=== PATIENT | male | born 1995 | race Caucasian/White ===

== ENCOUNTER 2016-07-17 11:18 | Emergency (ER) | payer OTHER ==
[2016-07-17 11:39] VITALS: BP 135/51; PULSE 50; TEMP 98; BMI 21.2
[2016-07-17] MEDS ORDERED: IBUPROFEN 600 MG TABLET (FP) PO ONE (12:03)
--- NOTE | 2016-07-17 12:09 | PDOC ---
History of Present Illness - General Chief Complaint: Injury Stated Complaint: SWOLLEN LT PINKY Time Seen by Provider: 07/17/16 11:56 History Source: Patient Exam Limitations: No Limitations - History of Present Illness Initial Comments: 07/17/16 12:13 My chief complaint: Left fifth finger proximal aspect bend backwards yesterday patient pulled on it to realign by basketball History of present illness: Patient is a 21 year old male with no significant medical problems here today due to swelling of his left 5th proximal finger with slight discomfort to the left fifth PIP joint. Patient reports that yesterday he was playing basketball on his fifth left finger was hit by the basketball bending the proximal aspect backwards patient noted a deformity to his PIP joint patient pulled on his finger to realign finger. Patient is here to get x-ray due to having tenderness of the left fifth PIP joint with swelling. Patient has slight decreased range of motion of the left fifth finger at the PIP joint. She reports tenderness in the finger is currently a 5 out of 10 worse with bending. Denies any numbness of his left fifth finger. Occurred: reports: yesterday Severity: reports: mild Upper Extremity Pain Location: left: 5th finger (at the pip jt ) Method of Injury: reports: sports injury (hit in left 5th finger by a basketball proximal aspect hyperflexed pt. noticed deformity at pip pt pulled on it to realign ) Modifying Factors: improves with: other (pt. pulled on left fith finger to realign at the pip jt ) Extremity Pain Location - Extremity Pain Location Extremity Pain Locations: left: 5th finger (over pip jt ) Past History - Past Medical History Allergies/Adverse Reactions: Allergies Allergy/AdvReac Type Severity Reaction Status Date / Time No Known Allergies Allergy Verified 07/17/16 11:36 Home Medications: Ambulatory Orders Amoxicillin/Potassium Clav [Augmentin 875-125 Tablet] 1 each PO BID #20 tablet 06/03/15 - Immunization History Immunization Up to Date: Yes - Psycho/Social/Smoking Cessation Hx Anxiety: No Suicidal Ideation: No Smoking Status: Yes Smoking History: Never smoked Have you smoked in the past 12 months: No Number of Cigarettes Smoked Daily: 0 Information on smoking cessation initiated: No Hx Alcohol Use: No Drug/Substance Use Hx: No Substance Use Type: None Review of Systems - Review of Systems Able to Perform ROS?: Yes Constitutional: No: Symptoms Reported HEENTM: No: Symptoms Reported Respiratory: No: Symptoms reported Cardiac (ROS): No: Symptoms Reported ABD/GI: No: Symptoms Reported : No: Symptoms Reported Musculoskeletal: Yes: Joint Pain (left 5th pip jt ), Joint Swelling (left fifth finger proximal aspect ) Integumentary: Yes: Bruising (palmar left 5th finger ) Neurological: No: Symptoms reported *Physical Exam - Vital Signs Last Vital Signs Temp Pulse Resp BP Pulse Ox 98 F 50 L 18 135/51 98 07/17/16 11:37 07/17/16 11:37 07/17/16 11:37 07/17/16 11:37 07/17/16 11:37 - Physical Exam General Appearance: Yes: Appropriately Dressed Comments:: 07/17/16 1 07/17/16 12:10 radial pulse left 4 + Extremity: positive: Normal Capillary Refill, Normal Range of Motion (left mcp, dip jt, slightly decreased left 5th pip jt ), Tender (left 5th pip jt ), Swelling (left proximal 5th finger ) Integumentary: positive: Ecchymosis (left palmar 5th finger) Neurologic: positive: Normal Response, Respond to painful stimul (left fifth finger ). negative: Numbness, Sensory Deficit (left fifth finger) Procedures - Consent Consent obtained: From Patient - Splinting Splint Location: Left: Finger (fifth) Pre-Proc Neuro Vasc Exam: normal Pre-Made Type: metal Splint Type: Yes: Finger (left fifth ) Post-Proc Neuro Vasc Exam: normal ED Treatment Course - RADIOLOGY Radiology Studies Ordered: Category Date Time Status FINGER(S) LEFT [RAD] Stat Radiology 07/17/16 12:03 Ordered Medical Decision Making - Medical Decision Making 07/17/16 12:16 Patient is a 21 year old male with no significant medical problems here today due to swelling of his left 5th proximal finger with slight discomfort to the left fifth PIP joint. Patient reports that yesterday he was playing basketball on his fifth left finger was hit by the basketball bending the proximal aspect backwards patient noted a deformity to his PIP joint patient pulled on his finger to realign finger. Patient is here to get x-ray due to having tenderness of the left fifth PIP joint with swelling. Patient has slight decreased range of motion of the left fifth finger at the PIP joint. She reports tenderness in the finger is currently a 5 out of 10 worse with bending. Denies any numbness of his left fifth finger. 07/17/16 12:16 R/O left 5th finger fracture/dislocation PLAN: ibuprofen 600 mg po now xray left fifth finger metal splint to left fifth finger for 3-5 days may remove to do passive ROM few times a day follow up with ortho 07/17/16 12:19 07/17/16 12:28 *DC/Admit/Observation/Transfer Diagnosis at time of Disposition: Finger pain, left Finger joint swelling Qualifiers: Laterality: left Qualified Code(s): M25.442 - Effusion, left hand - Referrals Referrals: Kenneth Felder MD [Primary Care Provider] - Kenenth Segal MD [Staff Physician] - - Patient Instructions Additional Instructions: keep finger splint on left 5th finger may remove and do passive range of motion of finger Follow up with orthopedist within the next few days Take Ibuprofen as needed as directed by tree inspector for pain and swelling Return to emergency room if any numbness of your finger or worsening pain or redness You may apply ice to left fifth finger every 2 hours for 15-20 minutes each time today and tomorrow Patient voiced understanding of discharge instructions and all questions were answered
== END 2016-07-17 12:44 | disposition home or self-care (01) ==
LOC: JERFT 11:18
PROC: 2W3KX1Z Immobilization of Left Finger using Splint (ICD-10-PCS; principal; 2016-07-17)
DX: M79.645 Pain in left finger(s) (principal); M25.442 Effusion, left hand; W21.05XA Struck by basketball, initial encounter; Y93.67 Activity, basketball; Y92.310 Basketball court as the place of occurrence of the external cause; Y99.8 Other external cause status
CPT/HCPCS: 29130; 73140-TC-LT; 99281-25

== ENCOUNTER 2017-01-29 09:34 | Emergency (ER) | payer OTHER ==
[2017-01-29 09:38] VITALS: BP 127/99; PULSE 67; TEMP 98; BMI 21.9
--- NOTE | 2017-01-29 10:11 | PDOC ---
History of Present Illness - General Chief Complaint: Injury Stated Complaint: RT WRIST PAIN Time Seen by Provider: 01/29/17 09:57 History Source: Patient Exam Limitations: No Limitations - History of Present Illness Initial Comments: 01/29/17 10:06 Was skateboarding last night, and fell onto outstretched right hand, complaints of pain and swelling to distal wrist. States use ice last night 01/29/17 10:07 01/29/17 10:43 Occurred: reports: yesterday Severity: reports: mild, moderate Pain Location: reports: upper extremity (distal wrist ) Method of Injury: Yes: fall Modifying Factors: improves with: cold therapy Associated Symptoms (Fall): denies symptoms Past History - Travel Traveled outside of the country in the last 30 days: No Close contact w/someone who was outside of country & ill: No - Past Medical History Allergies/Adverse Reactions: Allergies Allergy/AdvReac Type Severity Reaction Status Date / Time No Known Allergies Allergy Verified 01/29/17 09:38 Home Medications: Ambulatory Orders NK [No Known Home Medication] 01/29/17 Other medical history: denies - Immunization History Immunization Up to Date: Yes - Suicide/Smoking/Psychosocial Hx Smoking Status: Yes Smoking History: Never smoked Have you smoked in the past 12 months: No Number of Cigarettes Smoked Daily: 0 Information on smoking cessation initiated: No Hx Alcohol Use: No Drug/Substance Use Hx: No Substance Use Type: None Trauma Specific PMHX - Complaint Specific PMHX Back Injury: No Neck Injury: No Review of Systems - Review of Systems Able to Perform ROS?: Yes Is the patient limited [place] proficient: Yes Constitutional: Yes: Symptoms Reported, See HPI. No: Chills HEENTM: No: Symptoms Reported Respiratory: No: Symptoms reported Musculoskeletal: Yes: Symptoms Reported All Other Systems: Reviewed and Negative *Physical Exam - Vital Signs Last Vital Signs Temp Pulse Resp BP Pulse Ox 98 F 67 18 127/99 100 01/29/17 09:36 01/29/17 09:36 01/29/17 09:36 01/29/17 09:36 01/29/17 09:36 - Physical Exam General Appearance: Yes: Nourished, Appropriately Dressed, Mild Distress HEENT: positive: [place], TMs Normal, Pharynx Normal Neck: positive: Supple. negative: Tender Musculoskeletal: positive: Normal Inspection, Decreased Range of Motion ( tenderness at distal aspect of radius and ulna, unable to flex and extend. Has no snuffbox tenderness, able to flex and extend all fingers with good sensation. ) Extremity: positive: Normal Capillary Refill Integumentary: positive: Normal Color, Dry, Warm Neurologic: positive: program checker II-XII NML intact, Fully Oriented, Alert, Normal Mood/ Affect, Normal Response, Motor Strength 5/5 Progress Note - Progress Note Progress Note: Right wrist sprain, splinted and have follow up with Orth O *DC/Admit/Observation/Transfer Diagnosis at time of Disposition: Right wrist sprain Qualifiers: Encounter type: initial encounter Qualified Code(s): S63.501A - Unspecified sprain of right wrist, initial encounter; S63.501A - Unspecified sprain of right wrist, initial encounter - Discharge Dispostion Disposition: HOME Condition at time of disposition: Stable Admit: No - Referrals Referrals: Kenneth Felder MD [Primary Care Provider] - Kenneth Segal MD [Staff Physician] - - Patient Instructions Additional Instructions: Rest, ice to area on and off for 15 minutes 4-6 times a day Avoid heavy lifting or exercise until pain and swelling is resolved or until further directed Keep area highly elevated to reduce swelling Use splints/Rupesh wrap as directed Followup with orthopedist in one to 2 days if not improving, if significantly improved may wait one week for followup with orthopedist May use ibuprofen 2-200 mg tablets every 6 hours as needed for pain - Post Discharge Activity Forms/Work/School Notes: Back to Work
== END 2017-01-29 10:51 | disposition home or self-care (01) ==
LOC: JERFT 09:34
PROC: 2W3CX1Z Immobilization of Right Lower Arm using Splint (ICD-10-PCS; principal; 2017-01-29)
DX: S63.501A Unspecified sprain of right wrist, initial encounter (principal); V00.131A Fall from skateboard, initial encounter; Y92.410 Unspecified street and highway as the place of occurrence of the external cause; Y93.51 Activity, roller skating (inline) and skateboarding; Y99.8 Other external cause status
CPT/HCPCS: 29125; 73110-TC-RT; 99281-25

== ENCOUNTER 2017-11-25 19:49 | Emergency (ER) | payer OTHER ==
--- NOTE | 2017-11-25 20:26 | PDOC ---
Rapid Medical Evaluation Chief Complaint: Laceration Time Seen by Provider: 11/25/17 20:20 Medical Evaluation: Allergies Allergy/AdvReac Type Severity Reaction Status Date / Time No Known Allergies Allergy Verified 01/29/17 09:38 11/25/17 20:20 c/o laceration to left eyelid, knocked into another player. last tetanus 5 years ago. patient reports feeling dizzy PE: + 3cm laceration to lateral aspect of left eye lid. no periorbital tenderness A; facial laceration Plan: head patient to the ER for further management 11/25/17 20:23 Discharge Disposition - Diagnosis Facial laceration Qualifiers: Encounter type: initial encounter Qualified Code(s): S01.81XA - Laceration without foreign body of other part of head, initial encounter - Referrals - Patient Instructions - Post Discharge Activity
[2017-11-25 20:28] VITALS: BP 118/74; PULSE 75; TEMP 97.4; BMI 22.5
--- NOTE | 2017-11-25 21:58 | PDOC ---
History of Present Illness - General Chief Complaint: Laceration Stated Complaint: LACERATION Time Seen by Provider: 11/25/17 20:20 - History of Present Illness Initial Comments: Healthy 22-year-old male without comorbidities presents after sustaining a laceration above his left eye while playing basketball. No loss of consciousness , no nausea, vomiting, headache, or post injury visual changes. 11/25/17 21:56 Past History - Past Medical History Allergies/Adverse Reactions: Allergies Allergy/AdvReac Type Severity Reaction Status Date / Time No Known Allergies Allergy Verified 01/29/17 09:38 Home Medications: Ambulatory Orders NK [No Known Home Medication] 01/29/17 Cancer: No Cardiac Disorders: No CVA: No COPD: No DVT: No Dementia: No Diabetes: No Dialysis: No - Surgical History Cholecystectomy: No GI Surgery: No - Immunization History Immunization Up to Date: Yes - Suicide/Smoking/Psychosocial Hx Smoking Status: Yes Smoking History: Never smoked Have you smoked in the past 12 months: No Number of Cigarettes Smoked Daily: 0 Information on smoking cessation initiated: No Hx Alcohol Use: Yes (social) Drug/Substance Use Hx: Yes (Marijuanna) Substance Use Type: None Review of Systems - Review of Systems All Other Systems: Reviewed and Negative *Physical Exam - Vital Signs Last Vital Signs Temp Pulse Resp BP Pulse Ox 97.4 F L 75 20 118/74 99 11/25/17 20:24 11/25/17 20:24 11/25/17 20:24 11/25/17 20:24 11/25/17 20:24 - Physical Exam Comments: GENERAL: The patient is awake, alert, and fully oriented, in no acute distress. HEAD: Normal with no signs of trauma. EYES: sclera anicteric, conjunctiva clear. ENT: Ears normal NECK: Normal range of motion LUNGS: Breath sounds equal, clear to auscultation bilaterally. No wheezes, and no crackles. HEART: S1 and S2 without murmur, rub or gallop. ABDOMEN: Soft, nontender, normoactive bowel sounds. No guarding, no rebound. No masses. EXTREMITIES: Normal range of motion, no edema. No clubbing or cyanosis. No cords, erythema, or tenderness. NEUROLOGICAL: Cranial nerves II through XII grossly intact. Normal speech, normal gait. Number negative PSYCH: Normal mood, normal affect. SKIN: Warm, Dry, normal turgor, no rashes or lesions noted. There is a linear laceration on the lateral aspect above the left eyebrow about 1 cm in length 11/25/17 21:55 Medical Decision Making - Medical Decision Making The laceration was anesthetized with 3 mL of 1% lidocaine without epinephrine. This was tolerated well the wound was explored to its base in a bloodless field. No foreign body was identified. The wound was copiously irrigated. 6 6-0 nylon sutures were used in a simple interrupted fashion to close the laceration. This was tolerated well. A dry sterile dressing was placed. 11/25/17 21:55 *DC/Admit/Observation/Transfer Diagnosis at time of Disposition: Facial laceration Qualifiers: Encounter type: initial encounter Qualified Code(s): S01.81XA - Laceration without foreign body of other part of head, initial encounter - Discharge Dispostion Disposition: HOME Condition at time of disposition: Stable Decision to Admit order: No - Referrals Referrals: Kenneth Felder MD [Primary Care Provider] - - Patient Instructions Printed Discharge Instructions: DI for Laceration Repair Additional Instructions: Return to the emergency room should symptoms worsen or go unresolved. Return to the emergency room in 7-10 days for suture removal. Return to the emergency room should you have any drainage redness or increased pain or swelling around the area of the wound. He may follow-up with plastic surgery in 2-3 days for further evaluation and treatment options. The 8 hours. After 48 hours you may remove the dressing and wash the area with soap and water. You may not submerge it or go on a swimming pool. He may leave it open to air after is cleaned with soap and water. He may clean the laceration 2-3 times a day with soap and water. Again leaving it open to air after 48 hours. - Post Discharge Activity
== END 2017-11-25 22:02 | disposition home or self-care (01) ==
LOC: JERFT 19:49
PROC: 0HQ1XZZ Repair Face Skin, External Approach (ICD-10-PCS; principal; 2017-11-25)
DX: S01.81XA Laceration without foreign body of other part of head, initial encounter (principal); W50.0XXA Accidental hit or strike by another person, initial encounter; Y93.67 Activity, basketball; Y92.310 Basketball court as the place of occurrence of the external cause
CPT/HCPCS: 12011; 70450-TC; 99281-25

== ENCOUNTER 2018-04-14 15:30 | Emergency (ER) | payer OTHER ==
[2018-04-14 15:51] VITALS: BP 124/69; PULSE 86; TEMP 97.6; BMI 22.4
--- NOTE | 2018-04-14 15:52 | PDOC ---
Rapid Medical Evaluation Chief Complaint: Cold Symptoms Medical Evaluation: Allergies Allergy/AdvReac Type Severity Reaction Status Date / Time No Known Allergies Allergy Verified 01/29/17 09:38 04/14/18 15:51 I have performed a brief in-person evaluation of this patient. The patient presents with a chief complaint of: uri, CONGESTION , FEVERS Pertinent physical exam findings: congested, cough I have ordered the following: influenza The patient will proceed to the ED for further evaluation. Discharge Disposition - Discharge Dispostion Condition at time of disposition: Stable - Referrals Referrals: Kenneth Felder MD [Primary Care Provider] - - Patient Instructions - Post Discharge Activity
--- NOTE | 2018-04-14 17:27 | PDOC ---
History of Present Illness - General Chief Complaint: Cold Symptoms Stated Complaint: Cold Symptoms Time Seen by Provider: 04/14/18 17:06 History Source: Patient Exam Limitations: Clinical Condition - History of Present Illness Initial Comments: 04/14/18 17:22 Patient with no significant past medication present with complaint of 4 day history of persistent cough, runny nose, nasal congestion, sinus pains and nausea. Patient denies fever, chills or vomiting. Patient denies any other symptoms Timing/Duration: other (4 days) Past History - Past Medical History Allergies/Adverse Reactions: Allergies Allergy/AdvReac Type Severity Reaction Status Date / Time No Known Allergies Allergy Verified 01/29/17 09:38 Home Medications: Ambulatory Orders Benzonatate [Tessalon Pearls -] 100 mg PO TID PRN #21 capsule 04/14/18 Ipratropium [place] 2 spray NS BID PRN #1 spray 04/14/18 Methylprednisolone [Medrol Dose Fahad] 4 mg PO ASDIR #21 tablet 04/14/18 Ondansetron [Zofran Odt -] 4 mg SL TID PRN #12 od.tablet 04/14/18 Asthma: Yes Cancer: No Cardiac Disorders: No CVA: No COPD: No DVT: No Dementia: No Diabetes: No Dialysis: No Kidney Stones: No Psychiatric Problems: No - Surgical History Cholecystectomy: No GI Surgery: No - Immunization History Immunization Up to Date: Yes - Suicide/Smoking/Psychosocial Hx Smoking Status: Yes Smoking History: Never smoked Have you smoked in the past 12 months: No Number of Cigarettes Smoked Daily: 0 Information on smoking cessation initiated: No Hx Alcohol Use: No Drug/Substance Use Hx: No Substance Use Type: None Review of Systems - Review of Systems Able to Perform ROS?: Yes Is the patient limited [place] proficient: No Constitutional: No: Chills, Fever, Malaise HEENTM: Yes: Symptoms Reported, See HPI, Nose Congestion. No: Eye Pain, Blurred Vision, Tearing, Recent change in vision, Double Vision, Cataracts, Ear Pain, Ocular Prothesis, Ear Discharge, Nose Pain, Tinnitus, Nose Bleeding, Hearing Loss, Throat Pain, Throat Swelling, Mouth Pain, Dental Problems, Difficulty Swallowing, Mouth Swelling, Other Respiratory: Yes: Symptoms reported, See HPI, Cough. No: Orthopnea, Shortness of Breath, SOB with Exertion, SOB at Rest, Stridor, Wheezing, Productive cough, Hemoptysis, Other Cardiac (ROS): No: Symptoms Reported, See HPI, Chest Pain, Edema, Irregular Heart Rate, Lightheadedness, Palpitations, Syncope, Chest Tightness, Other ABD/GI: Yes: Nausea. No: Constipated, Diarrhea, Vomiting All Other Systems: Reviewed and Negative *Physical Exam - Vital Signs Last Vital Signs Temp Pulse Resp BP Pulse Ox 97.6 F 86 18 124/69 100 04/14/18 15:49 04/14/18 15:49 18 15:49 04/14/18 15:49 04/14/18 15:49 - Physical Exam Comments: 04/14/18 17:23 GENERAL: Well developed, well nourished. Awake and alert. No acute distress. HEENT: Normocephalic, atraumatic. PERRLA, EOMI. No conjunctival pallor. Sclera are non-icteric. Moist mucous membranes. Oropharynx is clear. NECK: Supple. Full ROM. CARDIOVASCULAR: Regular rate and rhythm. No murmurs, rubs, or gallops. Distal pulses are 2+ and symmetric. PULMONARY: No evidence of respiratory distress. Lungs clear to auscultation bilaterally. No wheezing, rales or rhonchi. ABDOMINAL: Soft. Non-tender. Non-distended. No rebound or guarding. No organomegaly. Normoactive bowel sounds. MUSCULOSKELETAL Normal range of motion at all joints. EXTREMITIES: No cyanosis. No clubbing. No edema. No calf tenderness. SKIN: Warm and dry. Normal capillary refill. No rashes. No jaundice. NEUROLOGICAL: Alert, awake, appropriate. Gait is normal without ataxia. PSYCHIATRIC: Cooperative. Good eye contact. Appropriate mood General Appearance: Yes: Nourished, Appropriately Dressed. No: Apparent Distress Moderate Sedation - Procedure Monitoring Vital Signs: Procedure Monitoring Vital Signs Temperature 97.6 F 04/14/18 15:49 Pulse Rate 86 04/14/18 15:49 Respiratory Rate 18 04/14/18 15:49 Blood Pressure 124/69 04/14/18 15:49 O2 Sat by Pulse Oximetry (%) 100 04/14/18 15:49 Medical Decision Making - Medical Decision Making 04/14/18 17:23 Patient with no significant past medication present with complaint of 4 day history of URI symptoms and nausea with no vomiting or fever. Clinical exam unremarkable. Symptoms likely viral URI. Rapid flu negative. Patient is stable for discharge on outpatient treatment for URI with Tessalon Perles, Medrol Fahad and nasal spray with Zofran as needed for nausea *DC/Admit/Observation/Transfer Diagnosis at time of Disposition: Cough, Nausea URI (upper respiratory infection) Qualifiers: URI type: unspecified viral URI Qualified Code(s): J06.9 - Acute upper respiratory infection, unspecified - Discharge Dispostion Disposition: HOME Condition at time of disposition: Stable - Prescriptions Prescriptions: Benzonatate [Tessalon Pearls -] 100 mg PO TID PRN #21 capsule PRN Reason: Cough Ipratropium [place] 2 spray NS BID PRN #1 spray PRN Reason: nasal congestion Methylprednisolone [Medrol Dose Fahad] 4 mg PO ASDIR #21 tablet Ondansetron [Zofran Odt -] 4 mg SL TID PRN #12 od.tablet PRN Reason: nausea - Referrals Referrals: Kenneth Felder MD [Primary Care Provider] - - Patient Instructions Printed Discharge Instructions: DI for Viral Upper Respiratory Infection -- Adult Additional Instructions: Take medication as prescribed. increase fluid intake. Follow-up with primary care provider - Post Discharge Activity
== END 2018-04-14 17:30 | disposition home or self-care (01) ==
LOC: JERFT 15:30
DX: R11.0 Nausea (principal); R05 Cough; J06.9 Acute upper respiratory infection, unspecified; J45.909 Unspecified asthma, uncomplicated
CPT/HCPCS: 87804; 99281-25

== ENCOUNTER 2018-06-20 09:42 | Emergency (ER) | payer OTHER ==
[2018-06-20 10:07] VITALS: BP 120/59; PULSE 72; TEMP 98.6; BMI 17.9
[2018-06-20] MEDS ORDERED: IBUPROFEN 600 MG TABLET (FP) PO ONE ×2 (11:22→11:25)
--- NOTE | 2018-06-20 11:27 | PDOC ---
History of Present Illness - General Chief Complaint: Cold Symptoms Stated Complaint: NAUSEA Time Seen by Provider: 06/20/18 10:52 History Source: Patient Exam Limitations: No Limitations - History of Present Illness Initial Comments: 06/20/18 11:25 Onset of fever, chills, body aches, runny nose, moist nonproductive cough and ear and throat pain since yesterday. Took [id number] medications but states is feeling worse. Timing/Duration: reports: getting worse, yesterday Severity: reports: mild, moderate Associated Symptoms: reports: cough, earache, fever/chills, nasal congestion, nasal drainage, sore throat Past History - Past Medical History Allergies/Adverse Reactions: Allergies Allergy/AdvReac Type Severity Reaction Status Date / Time No Known Allergies Allergy Verified 06/20/18 10:04 Home Medications: Ambulatory Orders Ibuprofen 600 mg PO Q6H PRN #30 tablet 06/20/18 Oseltamivir Phosphate [Tamiflu -] 75 mg PO BID #10 capsule 06/20/18 Asthma: Yes Cancer: No Cardiac Disorders: No CVA: No COPD: No DVT: No Dementia: No Diabetes: No Dialysis: No Kidney Stones: No Psychiatric Problems: No - Surgical History Cholecystectomy: No GI Surgery: No - Immunization History Immunization Up to Date: Yes - Suicide/Smoking/Psychosocial Hx Smoking Status: Yes Smoking History: Current every day smoker Have you smoked in the past 12 months: No Number of Cigarettes Smoked Daily: 0 Information on smoking cessation initiated: No Hx Alcohol Use: No Drug/Substance Use Hx: Yes (marijuana) Substance Use Type: None Review of Systems - Review of Systems Able to Perform ROS?: Yes Is the patient limited Wolof proficient: Yes Constitutional: Yes: Symptoms Reported, See HPI, Chills, Fever, Loss of Appetite , Malaise HEENTM: Yes: Symptoms Reported, See HPI, Nose Pain, Nose Congestion, Throat Pain , Difficulty Swallowing Respiratory: Yes: Symptoms reported, See HPI, Cough, Wheezing ABD/GI: Yes: Symptoms Reported, See HPI, Nausea Musculoskeletal: Yes: Symptoms Reported, See HPI Neurological: Yes: Symptoms reported, See HPI, Headache All Other Systems: Reviewed and Negative *Physical Exam - Vital Signs Last Vital Signs Temp Pulse Resp BP Pulse Ox 98.6 F 72 16 120/59 L 100 06/20/18 10:04 06/20/18 10:04 06/20/18 10:04 06/20/18 10:04 06/20/18 10:04 - Physical Exam Comments: 06/20/18 11:28 GENERAL: [ The pateint is awake, alert, and appropriately interactive.] EYES: [The pupils are equal, round, and reactive to light, with clear, conjunctiva.but glassy] NOSE: [The nose with clear drainage EARS: [The ear canals and tympanic membranes are congested but landmarks easily visualed ] THROAT: [The oropharynx is clear with erythema, no exudates. The mucous membranes are moist.] NECK: [The neck is supple with mildly tender adenopathy, no menigemous] CHEST: [The lungs are coarse but clear without crackles, or wheezes.] HEART: [Heart is regular rhythm, with normal S1 and S2, no murmurs.] ABDOMEN: [The abdomen is soft and nontender with normal bowel sounds. There is no organomegaly and no mass. There is no guarding or rebound.] EXTREMITIES: [Extremities are normal.] NEURO: [Behavior is normal for age.cranky but easily, Tone is normal.] SKIN: [Skin is unremarkable without rash or swelling. There is no bruising, and there are no other signs of injury.] General Appearance: Yes: Nourished, Appropriately Dressed, Apparent Distress, Mild Distress HEENT: positive: CAMDEN, Normal ENT Inspection, TMs Normal, Pharynx Normal Neck: positive: Supple, Lymphadenopathy (R), Lymphadenopathy (L) Respiratory/Chest: positive: Lungs Clear Moderate Sedation - Procedure Monitoring Vital Signs: Procedure Monitoring Vital Signs Temperature 98.6 F 06/20/18 10:04 Pulse Rate 72 06/20/18 10:04 Respiratory Rate 16 06/20/18 10:04 Blood Pressure 120/59 L 06/20/18 10:04 O2 Sat by Pulse Oximetry (%) 100 06/20/18 10:04 Progress Note - Progress Note Progress Note: Upper respiratory infection all clinically evident of influenza therefore will treat with Tamiflu *DC/Admit/Observation/Transfer Diagnosis at time of Disposition: Influenzal acute upper respiratory infection - Discharge Dispostion Disposition: HOME Condition at time of disposition: Stable Decision to Admit order: No - Referrals - Patient Instructions Printed Discharge Instructions: DI for Viral Upper Respiratory Infection -- Adult Additional Instructions: Rest, drink lots of fluids: Teas, water, soups, Pedialyte Saltwater gargles Steamy showers/seem to face break up mucus Old-fashioned treatments help! Avoid contact with others until fevers and cough resolved as this is very contagious Lots of handwashing and good hygiene Continue [id number]-[id number]-[id number] medications for symptomatic relief Tylenol or Motrin for fever and pain Take all of Tamiflu as directed: 1 tab every 12 hours for 5 days Followup with private physician in one to 2 days as needed or if worsening Return to emergency department for worsened symptoms, fevers, dehydration Influenza takes between 5 and 7 days for resolution To not participate in any activity, work, or school until fevers and cough are gone for at least one day - Post Discharge Activity Forms/Work/School Notes: Back to Work
== END 2018-06-20 11:31 | disposition home or self-care (01) ==
LOC: JERFT 09:42
DX: J11.1 Influenza due to unidentified influenza virus with other respiratory manifestations (principal)
CPT/HCPCS: 99281-25

== ENCOUNTER 2019-03-09 11:41 | Emergency (ER) | payer OTHER ==
[2019-03-09 11:55] VITALS: TEMP 97.4; BMI 22.5
--- NOTE | 2019-03-09 13:07 | PDOC ---
History of Present Illness - General Chief Complaint: Chest Pain Stated Complaint: CHEST PAIN - History of Present Illness Initial Comments: 03/09/19 13:09 23m with no pmh presents with sharp mid-sternal chest pain since waking up this morning. The pain is worse when he takes a deep breath, feels like cracking his chest would relieve the pain. The pain does no radiate anywhere. No He works out a lot at the gym. Last week he had the same symptom, manage to "crack" his sternum which relieved the pain completely. Didn't take anything for the pain. Only smokes marijuana occasionally. No cigarette. No history of familial heart disease. Rare use of THC-vape products. Denies SOB, fever, chills, diaphoresis. Past History - Past Medical History Allergies/Adverse Reactions: Allergies Allergy/AdvReac Type Severity Reaction Status Date / Time No Known Allergies Allergy Verified 03/09/19 11:55 Home Medications: Ambulatory Orders Ibuprofen 600 mg PO Q6H PRN #30 tablet 06/20/18 Oseltamivir Phosphate [Tamiflu -] 75 mg PO BID #10 capsule 06/20/18 Ibuprofen 600 mg PO TID PRN #30 tablet 03/09/19 Asthma: Yes Cancer: No Cardiac Disorders: No CVA: No COPD: No DVT: No Dementia: No Diabetes: No Dialysis: No Kidney Stones: No Psychiatric Problems: No Other medical history: LYME DISEASE - Surgical History Cholecystectomy: No GI Surgery: No - Immunization History Immunization Up to Date: Yes - Psycho Social/Smoking Cessation Hx Smoking Status: Yes Smoking History: Current some day smoker Have you smoked in the past 12 months: No Number of Cigarettes Smoked Daily: 0 Information on smoking cessation initiated: No Hx Alcohol Use: No Drug/Substance Use Hx: Yes (MARIJUANA) Substance Use Type: None Review of Systems - Review of Systems Able to Perform ROS?: Yes Is the patient limited Serbian proficient: No Constitutional: No: Symptoms Reported HEENTM: No: Symptoms Reported Respiratory: No: Symptoms reported Cardiac (ROS): Yes: See HPI ABD/GI: No: Symptoms Reported : No: Symptoms Reported Musculoskeletal: No: Symptoms Reported Integumentary: No: Symptoms Reported Neurological: No: Symptoms reported All Other Systems: Reviewed and Negative *Physical Exam - Vital Signs Last Vital Signs Temp Pulse Resp BP Pulse Ox 97.4 F L 88 15 112/68 99 03/09/19 11:53 03/09/19 12:45 03/09/19 12:45 03/09/19 12:45 03/09/19 12:45 - Physical Exam General Appearance: Yes: Nourished, Appropriately Dressed. No: Apparent Distress HEENT: positive: EOMI, CAMDEN, Normal ENT Inspection Respiratory/Chest: positive: Chest Tender (over sternum), Lungs Clear, Normal Breath Sounds, Respiratory Distress Cardiovascular: positive: Regular Rhythm, S1, S2, Bradycardia Gastrointestinal/Abdominal: positive: Normal Bowel Sounds, Flat, Soft. negative : Tender Integumentary: positive: Normal Color, Dry, Warm Neurologic: positive: Fully Oriented, Alert, Normal Mood/Affect, Normal Response , Motor Strength 5/5 Heart Score/ECG Review - History History: Slightly suspicious - Electrocardiogram EKG: Non specific repolarization disturbance - Age Age: </= 45 - Risk Factors Risk Factors Heart Score: No Hx Hypercholesterolemia, No Hx Hypertension, No Hx Diabetes, No Smoking History, No Positive family hx of cardiac disease, No Hx Obesity Based on the list above the patient has:: No risk factors known - Troponin Troponin: </= normal limit - Score Heart Score - Total: 1 ED Treatment Course - LABORATORY CBC & Chemistry Diagram: 03/09/19 13:35 03/09/19 13:35 - ADDITIONAL ORDERS Additional order review: Laboratory Results 03/09/19 03/09/19 13:35 13:35 Sodium 137 Potassium 4.2 Chloride 104 Carbon Dioxide 32 Anion Gap 2 L BUN 15.7 Creatinine 1.1 Est GFR (CKD-EPI)AfAm 108.32 Est GFR (CKD-EPI)NonAf 93.46 Random Glucose 76 Calcium 9.1 Total Bilirubin 1.1 H AST 17 ALT 19 Alkaline Phosphatase 56 Troponin I < 0.02 Total Protein 7.0 Albumin 4.2 03/09/19 13:35 RBC 4.42 MCV 99.0 H MCHC 34.2 RDW 12.0 MPV 8.7 Neutrophils % 46.6 Lymphocytes % 42.2 H Monocytes % 9.3 Eosinophils % 1.0 Basophils % 0.9 - RADIOLOGY Radiology Studies Ordered: Category Date Time Status CHEST PA & LAT [RAD] Stat Radiology 03/09/19 13:08 Taken - Medications Given in the ED: ED Medications Discontinued Medications Generic Name Dose Route Start Last Admin Trade Name Freq PRN Reason Stop Dose Admin Ketorolac Tromethamine 30 mg 03/09/19 14:23 03/09/19 14:30 Toradol Injection - IM 03/09/19 14:24 30 mg ONCE ONE Administration Medical Decision Making - Medical Decision Making 03/09/19 13:16 23m no pmh coming in for chest pain.; costochondritis vs acs vs pneumothorax vs PE EKG: Sinus bradycardia, early repolarization. 03/09/19 13:58 Trops pending. Low suspicion for PE as patient PERCs out. 03/09/19 14:23 Negative pneumothorax on cxr. First troponin negative. Will check second set at 1630 03/09/19 15:05 PAtient feels better. Wishes to leave AMA immediately, refuses to wait until 1635, understands the risks. Discharge - Discharge Information Problems reviewed: Yes Clinical Impression/Diagnosis: Chest pain Condition: Improved Disposition: AGAINST MEDICAL ADVICE - Follow up/Referral Referrals: Kenneth Felder MD [Primary Care Provider] - - Patient Discharge Instructions - Post Discharge Activity
[2019-03-09 13:43] VITALS: BP 112/68; PULSE 88
[2019-03-09 13:47] LABS: BASO % 0.9 % (0-2.0); HEMATOCRIT 43.8 % (35.4-49); LYMPH % 42.2 % (8-40); MCH 33.8 pg (25.7-33.7); MCHC 34.2 g/dl (32.0-35.9); MEAN PLT VOLUME 8.7 fl (7.5-11.1); MONO % 9.3 % (3.8-10.2); NEUT % 46.6 % (42.8-82.8); PLATELET COUNT 166 K/MM3 (134-434); RBC 4.42 M/mm3 (4.00-5.60); WHITE BLOOD COUNT 4.3 K/mm3 (4.0-10.0)
[2019-03-09 14:16] LABS: ALBUMIN 4.2 g/dl (3.4-5.0); BILIRUBIN,TOTAL 1.1 mg/dL (0.2-1); BLOOD UREA NITROGEN 15.7 mg/dL (7-18); CALCIUM 9.1 mg/dL (8.5-10.1); CREATININE 1.1 mg/dL (0.55-1.3); POTASSIUM 4.2 mmol/L (3.5-5.1)
[2019-03-09] MEDS ORDERED: KETOROLAC TROMETHAMINE 30 MG/1 ML VIAL IM ONE (14:23)
[2019-03-09] MEDS ORDERED: KETOROLAC TROMETHAMINE 30 MG/1 ML VIAL ONE (15:06)
[2019-03-09] MEDS ORDERED: KETOROLAC TROMETHAMINE 60 MG/2 ML VIAL ONE (15:10)
--- NOTE | 2019-03-09 15:44 | PDOC ---
Attending Attestation - Resident Resident Name: Mario Baum - ED Attending Attestation I have performed the following: I have examined & evaluated the patient, The case was reviewed & discussed with the resident, I agree w/resident's findings & plan, Exceptions are as noted - HPI HPI: 03/09/19 15:17 23-year-old male with no significant past medical history presents emergency department with sharp midsternal chest pain that he noticed after he woke up this morning. He reports the pain is intermittent, and is worse with certain positions of his chest. He states it gets worse when he takes a deep breath in. Patient reports frequent chest workouts at the gym. He had similar pain last week, but was able to crack his sternum, at which point the pain resolved. He denies any radiation of the pain. He denies any associated dizziness, shortness of breath, focal weakness or numbness, diaphoresis, nausea, vomiting, abdominal pain. Denies any personal or family history of cardiac disease or young age. Denies any travel or immobility. Does not take any exogenous hormones. Denies recent drug use. Denies smoking. Denies fevers, chills, coughing, trauma, lower extremity edema or calf pain. - Physicial Exam PE: 03/09/19 15:44 GENERAL: Awake, alert, and fully oriented, in no acute distress EYES: EOMI, sclera anicteric, conjunctiva clear ENT: Oropharynx clear without exudates. Moist mucosa NECK: Normal ROM, supple, no lymphadenopathy, JVD, or masses LUNGS: Breath sounds equal, clear to auscultation bilaterally. No wheezes, and no crackles HEART: Regular rate and rhythm, normal S1 and S2, no murmurs, rubs or gallops. + sternal ttp ABDOMEN: Soft, nontender, normoactive bowel sounds. No guarding, no rebound. No masses EXTREMITIES: Normal range of motion, no edema. No cords, erythema, or tenderness NEUROLOGICAL: Normal speech, cranial nerves intact, equal strength and sensation b/l SKIN: Warm, Dry, normal turgor, no rashes or lesions noted. - Medical Decision Making 03/09/19 12:50 23-year-old male with no significant past medical history presents emergency department with reproducible chest pain. His vitals are within normal limits. His heart score is 0 He meets no PERC criteria We will plan for troponin x2, chest x-ray, basic labs and reassess. 03/09/19 15:00 Initial set of labs including troponin within normal limits. Chest x-ray is normal on my read Patient does not want to wait for second troponin as he feels better and is not currently having any more chest pain. Will sign patient out AGAINST MEDICAL ADVICE The patient is clinically sober, free from distracting injury, appears to have intact insight and judgment and reason and in my opinion has the capacity to make decisions. The patient presents with chest pain. I have explained that I am concerned that this may represent acute coronoary syndrome; they have verbalized an understanding of my concerns. I have told the patient that while their labs were normal, they could still have acute coronary syndrome. I have discussed the need for another lab test to get more information about potential causes of the patients chest pain. I have told the patient that if they leave and have recurrent chest pain, they could get much worse, could become critically ill, and could possibly become disabled or . I have asked them to stay in the hospital for serial trop exams. He is refusing any further care and is leaving against medical advice. I am unable to convince the patient to stay, I have asked them to return as soon as possible to complete their evaluation. I have answered all their questions. Heart Score/ECG Review - History History: Slightly suspicious - Electrocardiogram EKG: Normal - Age Age: </= 45 - Risk Factors Based on the list above the patient has:: No risk factors known - Troponin Troponin: </= normal limit - Score Heart Score - Total: 0 #1 03/09/19 15:49 Twelve-lead EKG was performed and reviewed by me. Sinus bradycardia, rate 54. Normal axis. No ST elevations, however patient does have early repolarization.
--- NOTE | 2019-03-10 11:30 | EKG ---
Test Reason : Blood Pressure : / mmHG Vent. Rate : 054 BPM Atrial Rate : 054 BPM P-R Int : 176 ms QRS Dur : 090 ms QT Int : 420 ms P-R-T Axes : 066 084 071 degrees QTc Int : 398 ms SINUS BRADYCARDIA WITH SINUS ARRHYTHMIA EARLY REPOLARIZATION OTHERWISE NORMAL ECG NO PREVIOUS ECGS AVAILABLE Confirmed by MD Madison, Prudencio ([id number]) on 03/10/2019 11:30:13 AM Referred By: Confirmed By:Prudencio Wallace MD
== END 2019-03-09 15:15 | disposition left against medical advice (07) ==
LOC: JER 11:41
PROC: 3E0233Z Introduction of Anti-inflammatory into Muscle, Percutaneous Approach (ICD-10-PCS; principal; 2019-03-09)
DX: R07.9 Chest pain, unspecified (principal)
CPT/HCPCS: 36415; 71046-TC-FY; 80053; 84484; 85025; 93005; 93010; 96372; 99282-25

== ENCOUNTER 2020-03-03 09:56 | Emergency (ER) | payer OTHER ==
[2020-03-03 10:24] VITALS: BP 118/62; PULSE 67; TEMP 97.8; BMI 16.9
--- OUTSIDE RECORDS SUMMARY | 2020-03-03 10:28 | XMS ---
:1995 Author Organization [facility] Support Name Relationship Address Phone AARON BLACKWELL DAUGHTER [address] [place] [address] SE Unavailable Unavailable Unavailable BERTRAND BLACKWELL MOTHER [address] [phone] [place] [address] ROSALVA Mother [address] [place] [address] Re-disclosure Warning The records that you are about to access may contain information from federally- assisted alcohol or drug abuse programs. If such information is present, then the following federally mandated warning applies: This information has been disclosed to you from records protected by federal confidentiality rules (42 CFR part 2). The federal rules prohibit you from making any further disclosure of this information unless further disclosure is expressly permitted by the written consent of the person to whom it pertains or as otherwise permitted by 42 CFR part 2. A general authorization for the release of medical or other information is NOT sufficient for this purpose. The Federal rules restrict any use of the information to criminally investigate or prosecute any alcohol or drug abuse patient.The records that you are about to access may contain highly sensitive health information, the redisclosure of which is protected by Article 27-F of the [facility] Public Health law. If you continue you may haveaccess to information: Regarding HIV / AIDS; Provided by facilities licensed or operated by the [facility] Office of Mental Health; or Provided by the [facility] Office for People With Developmental Disabilities. If such information is present, then the following [facility] mandated warning applies: This information has been disclosed to you from confidential records which are protected by state law. State law prohibits you from making any further disclosure of this information without the specific written consent of the person to whom it pertains, or as otherwise permitted by law. Any unauthorized further disclosure in violation of state law may result in a fine or correction sentence or both. A general authorization for the release of medical or other information is NOT sufficient authorization for further disclosure. Insurance Providers Payer name Policy type Policy ID Covered Covered democrat's Policy P raymundo / Coverage democrat ID relationship to [employer] ormation type diaz MVP MEDICAID [id number] O
--- NOTE | 2020-03-03 10:51 | PDOC ---
History of Present Illness - General Chief Complaint: Suture/Staple Removal(Here) Stated Complaint: REMOVAL OF STITCHES Time Seen by Provider: 03/03/20 10:22 History Source: Patient Exam Limitations: No Limitations - History of Present Illness Initial Comments: 03/03/20 10:47 24-year-old male denies past medical history presents for staple removal of scalp. Sustained injury 7 days ago, 3 mine were placed. Denies fever, chills, pain, headache or any complaints. Tetanus vaccine is up-to-date. ROS: as above PE: GENERAL: well-appearing, NAD HEAD: NCAT EYES: Pupils equal, round and reactive to light, sclera anicteric, conjunctiva clear ENT: pharynx: no erythema, no exudate, uvula midline NECK: supple CHEST: nontender RESP: clear, no w/r/r CARDIO: rrr, no m/g/r ABD: +BS, soft, nontender, non distended BACK: no midline spinal ttp, no CVAT EXTREMITIES: Normal range of motion NEUROLOGICAL: Normal speech, normal gait SKIN: 3 mine noted to occiput, no erythema, drainage from wound noted Is this a multiple visit Asthma Patient?: No Past History - Medical History Allergies/Adverse Reactions: Allergies Allergy/AdvReac Type Severity Reaction Status Date / Time No Known Allergies Allergy Verified 02/25/20 13:46 Home Medications: Ambulatory Orders Ibuprofen 600 mg PO Q6H PRN #30 tablet 06/20/18 Oseltamivir Phosphate [Tamiflu -] 75 mg PO BID #10 capsule 06/20/18 Ibuprofen 600 mg PO TID PRN #30 tablet 03/09/19 Asthma: Yes Cancer: No Cardiac Disorders: No CVA: No COPD: No DVT: No Dementia: No Diabetes: No Dialysis: No HTN: No Hypercholesterolemia: No Kidney Stones: No Psychiatric Problems: No - Surgical History Cholecystectomy: No GI Surgery: No - Immunization History Immunization Up to Date: Yes - Psycho-Social/Smoking History Smoking Status: Yes Smoking History: Never smoked Have you smoked in the past 12 months: No Number of Cigarettes Smoked Daily: 0 - Substance Abuse Hx (Audit-C & DAST Scrn) How often the patient has a drink containing alcohol: Monthly or less Score: In Men: 4 or > Positive; In Women: 3 or > Positive: 1 Screen Result (Pos requires Nsg. Audit-10AR): Negative In the last yr the pt used illegal drug/Rx for NonMed reason: Yes Score: Yes response is considered Positive: 1 Screen Result (Positive result requires Nsg. DAST-10): Positive *Physical Exam - Vital Signs Last Vital Signs Temp Pulse Resp BP Pulse Ox 97.8 F 67 16 118/62 99 03/03/20 10:21 03/03/20 10:21 03/03/20 10:21 03/03/20 10:21 03/03/20 10:21 Medical Decision Making - Medical Decision Making 03/03/20 10:50 24-year-old male presents for staple removal 3 mine removed successfully from scalp Discharge - Discharge Information Problems reviewed: Yes Clinical Impression/Diagnosis: Removal of staple Condition: Stable Disposition: HOME - Follow up/Referral Referrals: Kenneth Felder MD [Primary Care Provider] - - Patient Discharge Instructions Additional Instructions: Keep area clean and dry Do not remove scab If fever, chills, headache, or any concerning symptoms return to ED - Post Discharge Activity
== END 2020-03-03 11:01 | disposition home or self-care (01) ==
LOC: JERFT 09:56 → JER 09:56 → JERFT 11:01
DX: Z48.02 Encounter for removal of sutures (principal)
CPT/HCPCS: 99281-25

== ENCOUNTER 2021-05-03 11:33 | Emergency (ER) | payer OTHER ==
[2021-05-03 12:45] VITALS: BP 134/67; PULSE 74; TEMP 97.9; BMI 23.1
== END 2021-05-03 15:36 | disposition home or self-care (01) ==
LOC: JERFT 11:33
DX: K30 Functional dyspepsia (principal); K21.9 Gastro-esophageal reflux disease without esophagitis
CPT/HCPCS: 71046-TC-FY; 93005; 93010; 99283-25